=== PATIENT | male | born 1970 | race Caucasian/White ===

== ENCOUNTER → 2018-11-13 08:36 | Outpatient (CLI) | payer OTHER, SELFPAY ==
--- NOTE | 2018-11-13 | DI.MRI.S_ITS ---
PROCEDURE: MR HIP LT W CON INDICATIONS: PAIN IN LEFT HIP TECHNIQUE: After the administration of 10 mL of dilute intra-articular Gadolinium contrast, coronal STIR of the bony pelvis; coronal and oblique axial T1 spin echo with fat saturation, axial T2 fast spin echo with fat saturation, sagittal T1 spin echo with and without fat saturation of the involved hip. COMPARISON: None. FINDINGS: Image quality: Excellent. Bones and joints: Asymmetric mild to moderate osteoarthritic changes involving left hip joint is seen with superior joint space narrowing, subchondral sclerosis and marginal osteophyte formation. No intraosseous lesions or fractures. No avascular necrosis of the femoral head. The visualized lower lumbar spine appears normally aligned. The ligamental, neck, and labral plicae appear normal where visualized. Tendons and ligaments: The gluteus medius and minimus tendons appear intact, without associated muscle atrophy. The nearby proximal iliotibial band also appears intact. The iliopsoas tendon appears intact, without adjacent bursal fluid collections or evidence for impingement syndrome. The origin of the hamstring tendon is intact at the ischial tuberosity, as well as the associated sacrotuberous ligament. The straight and reflected heads of the rectus femoris muscle origin appear intact, as well as the conjoint tendon. The ligamentum teres appears intact where visualized. Labrum and cartilage: There is contour irregularity and abnormal contrast extension involving superior anterior labrum of the left hip consistent with superior anterior labral tear. Cartilage surface of the femoral head appears of normal thickness. No paralabral cysts. The alpha angle of the femur is within normal limits at less than 55 degrees. Soft tissues: Visualized muscles demonstrate normal bulk and internal signal. Quadratus femoris muscle demonstrates no internal edema to suggest ischiofemoral impingement. The proximal sciatic neurovascular bundle appears normal adjacent to the hamstring tendons. No free pelvic fluid. Bladder wall thickness is normal. Genitourinary structures and bowel loops appear normal where visualized. IMPRESSION: 1. Asymmetric mild to moderate left hip joint osteoarthritis. No fracture or dislocation. No evidence of avascular necrosis. 2. Suggestion of focal superior anterior left hip labral tear. 3. No gross muscle or tendon signal abnormality. Dictated by: Dany Gutiérrez M.D. on 11/13/2018 at 10:27 Approved by: Dany Gutiérrez M.D. on 11/13/2018 at 11:27
--- NOTE | 2018-11-13 | DI.RAD.S_ITS ---
PROCEDURE: FL HIP INJECTION MR/CT LT INDICATIONS: PAIN IN LEFT HIP TECHNIQUE: The indications, alternatives, benefits, risks, and complications of the procedure were explained to the patient. Written informed consent was obtained and placed in the chart. The hip was examined fluoroscopically with the legs fixed in slight internal rotation, and a site for needle placement chosen for entry into the hip joint from an anterior approach. Care was taken to locate the common femoral artery and vein beforehand. The skin was prepped and draped in a sterile fashion, and 1% Lidocaine infiltrated from skin down to joint capsule. A spinal needle was inserted into the joint, and a small amount of iodinated contrast media injected to confirm intra-articular placement of the needle tip. This was followed by approximately 10 mL dilute solution of a gadolinium containing MR contrast agent. The needle was removed and a dressing was applied. The patient was given postprocedural instructions and sent to the MR suite for imaging. FINDINGS: A single fluoroscopic spot image demonstrates intra-articular location of injected iodinated contrast. IMPRESSION: Successful fluoroscopically guided administration of dilute Gadolinium solution into the hip joint for MR arthrogram. Dictated by: Patience Rollins M.D. on 11/13/2018 at 10:05 Approved by: Patience Rollins M.D. on 11/13/2018 at 10:05
== END ==
PROVIDERS: PCP Family Medicine; Visit Provider Family Medicine
DX: M25.552 Pain in left hip (principal); M16.11 Unilateral primary osteoarthritis, right hip
CPT/HCPCS: 27093; 73722; 77002

== ENCOUNTER → 2021-01-23 15:34 | Outpatient (CLI) | payer OTHER, SELFPAY ==
--- NOTE | 2021-01-23 | DI.MRI.S_ITS ---
PROCEDURE: MR HIPS DEBBIE WO CON INDICATIONS: BILATERAL HIP PAIN TECHNIQUE: Noncontrast coronal T1 spin echo and STIR through the bony pelvis. Coronal and axial T2 fast spin echo with fat saturation, sagittal T1 spin echo, and oblique axial T2 fast spin echo with fat saturation through the hip. COMPARISON: [facility], CT, CT HIP LEFT WITHOUT CONTRAST, 09/29/2019, 11:30. [facility], CR, XR PELVIS WITH LATERAL HIP LEFT, 11/18/2019, 11:13. FINDINGS: Image quality: Excellent. Bones and joints: No acute trabecular bone injury. No avascular necrosis of the femoral heads is seen. Mild degenerative changes are seen at the pubic symphysis. Additional degenerative changes are seen in the included lower lumbar spine. No suspicious osseous lesion. Linear metallic artifact is seen in the left acetabulum related to the previously seen metallic object in this location, which may be related to prior surgical intervention. Tendons and ligaments: There is mild tendinosis of the distal gluteus medius and minimus tendons bilaterally. The proximal iliotibial bands appear intact. The iliopsoas tendons appear intact, without adjacent bursal fluid collections. The origins of the hamstring tendons are intact at the ischial tuberosities. The direct and indirect heads of the rectus femoris muscle origins appear intact. Labrum and cartilage: Mildly increased signal is seen in the left acetabulum on fluid sensitive sequences adjacent to the metallic object, which persists on the STIR sequence, and is favored to represent osseous edema rather than failure of fat suppression. Full-thickness cartilage loss is seen at the anterosuperior aspect of the left hip with subchondral cystic changes and edema and marginal osteophyte formation. There is degenerative spurring in the left femoral head. The anterior and superior portions of the left acetabulum appear diminutive and mildly irregular, consistent with chronic degeneration or degenerative tearing. Small left hip effusion. There is mild partial-thickness cartilage thinning in the superior portion of the right hip with mild marginal osteophyte formation. No displaced right labral tear is seen. Soft tissues: Mildly increased STIR signal is seen in the paraspinous musculature at the lumbosacral junction, slightly greater on the right, that could represent low-grade muscle strains. Visualized muscles otherwise demonstrate normal bulk and internal signal. Quadratus femoris muscle demonstrates no internal edema to suggest ischiofemoral impingement. The proximal sciatic neurovascular bundle appears intact. The included portions of the pelvis demonstrate no acute abnormality. IMPRESSION: 1. Full-thickness cartilage loss in the left hip with subchondral cystic changes and edema and marginal osteophyte formation. 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 A linear metallic object is again seen in the left acetabulum with mild adjacent edema. 2. Mild right hip osteoarthrosis with mild cartilage thinning and marginal osteophyte formation. No displaced right acetabular labral tear is seen. 3. Mild distal gluteus medius and minimus tendinosis bilaterally. 4. Degenerative changes are also seen at the pubic symphysis and the included portions of the lower lumbar spine. 5. Mild intramuscular edema in the lower paraspinous musculature, slightly greater on the right, may represent low-grade muscle strains. Dictated by: Hector Haynes M.D. on 01/23/2021 at 19:14 Approved by: Hector Haynes M.D. on 01/23/2021 at 19:36
--- NOTE | 2021-01-23 15:43 | DI.MRI.S_ITS ---
INDICATIONS: BILATERAL HIP PAIN TECHNIQUE: Noncontrast coronal T1 spin echo and STIR through the bony pelvis. Coronal and axial T2 fast spin echo with fat saturation, sagittal T1 spin echo, and oblique axial T2 fast spin echo with fat saturation through the hip. COMPARISON: [facility], CT, CT HIP LEFT WITHOUT CONTRAST, 09/29/2019, 11:30. [facility], CR, XR PELVIS WITH LATERAL HIP LEFT, 11/18/2019, 11:13. FINDINGS: Image quality: Excellent. Bones and joints: No acute trabecular bone injury. No avascular necrosis of the femoral heads is seen. Mild degenerative changes are seen at the pubic symphysis. Additional degenerative changes are seen in the included lower lumbar spine. No suspicious osseous lesion. Linear metallic artifact is seen in the left acetabulum related to the previously seen metallic object in this location, which may be related to prior surgical intervention. Tendons and ligaments: There is mild tendinosis of the distal gluteus medius and minimus tendons bilaterally. The proximal iliotibial bands appear intact. The iliopsoas tendons appear intact, without adjacent bursal fluid collections. The origins of the hamstring tendons are intact at the ischial tuberosities. The direct and indirect heads of the rectus femoris muscle origins appear intact. Labrum and cartilage: Mildly increased signal is seen in the left acetabulum on fluid sensitive sequences adjacent to the metallic object, which persists on the STIR sequence, and is favored to represent osseous edema rather than failure of fat suppression. Full- thickness cartilage loss is seen at the anterosuperior aspect of the left hip with subchondral cystic changes and edema and marginal osteophyte formation. There is degenerative spurring in the left femoral head. The anterior and superior portions of the left acetabulum appear diminutive and mildly irregular, consistent with chronic degeneration or degenerative tearing. Small left hip effusion. There is mild partial-thickness cartilage thinning in the superior portion of the right hip with mild marginal osteophyte formation. No displaced right labral tear is seen. Continued Report - Page 2 of 2 PATIENT NAME: DARREL GRAHAM : 1970 EXAM DATE: 01/23/2021 15:43 ORD. : TAM KIMBALL M.D. CC: MODALITY: MR PATIENT TYPE: Out CONTRAST MEDIA: STATION ID: [id number] FLUORO TIME: Soft tissues: Mildly increased STIR signal is seen in the paraspinous musculature at the lumbosacral junction, slightly greater on the right, that could represent low- grade muscle strains. Visualized muscles otherwise demonstrate normal bulk and internal signal. Quadratus femoris muscle demonstrates no internal edema to suggest ischiofemoral impingement. The proximal sciatic neurovascular bundle appears intact. The included portions of the pelvis demonstrate no acute abnormality. IMPRESSION: 1. Full-thickness cartilage loss in the left hip with subchondral cystic changes and edema and marginal osteophyte formation. 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 A linear metallic object is again seen in the left acetabulum with mild adjacent edema. 2. Mild right hip osteoarthrosis with mild cartilage thinning and marginal osteophyte formation. No displaced right acetabular labral tear is seen. 3. Mild distal gluteus medius and minimus tendinosis bilaterally. 4. Degenerative changes are also seen at the pubic symphysis and the included portions of the lower lumbar spine. 5. Mild intramuscular edema in the lower paraspinous musculature, slightly greater on the right, may represent low-grade muscle strains. Dictated by: Hector Haynes M.D. on 01/23/2021 at 19:14 Approved by: Hector Haynes M.D. on 01/23/2021 at 19:36
== END ==
PROVIDERS: PCP Family Medicine; Referring Provider Orthopaedic Surgery; Visit Provider Orthopaedic Surgery
DX: S73.192D Other sprain of left hip, subsequent encounter (principal); M16.11 Unilateral primary osteoarthritis, right hip; M25.851 Other specified joint disorders, right hip; M25.551 Pain in right hip; M25.552 Pain in left hip; G89.29 Other chronic pain
CPT/HCPCS: 73721